=== PATIENT | female | born 1930 | race Caucasian/White ===

== ENCOUNTER 2018-07-03 06:38 | Inpatient (IN) | payer OTHER ==
[2018-07-03] MEDS: SOD CHLORIDE 0.9% 1,000 ML IV (06:43)
[2018-07-03] MEDS: IPRATROPIUM (NEB) 0.5 MG/2.5 ML AMP INH (06:55)
[2018-07-03] MEDS: ALBUTEROL 0.5% (NEB) 2.5 MG/0.5 ML AMP INH (06:55)
[2018-07-03 06:58] LABS: ADD MAN DIFF? NO
[2018-07-03 06:59] LABS: WHITE BLOOD COUNT 10.8 10^3/ul (4.8-10.8)
[2018-07-03 06:59] LABS: BASOPHIL # 0.1 10^3/ul (0.0-0.1); BASOPHILS % 0.5 % (0.0-2.0); EOSINOPHILS # 0.1 10^3/ul (0.0-0.5); EOSINOPHILS % 0.6 % (0.0-7.0); HEMOGLOBIN 7.9 g/dl (12.0-16.0); LYMPHOCYTES # 0.9 10^3/ul (0.8-2.9); LYMPHOCYTES % 8.4 % (15.0-51.0); MEAN CORPUSCULAR HEMOGLOBIN 31.2 pg (29.0-33.0); MEAN CORPUSCULAR HGB CONC 30.4 g/dl (32.0-37.0); MEAN CORPUSCULAR VOLUME 102.8 fl (82.0-101.0); MEAN PLATELET VOLUME 10.3 fl (7.4-10.4); MONOCYTE # 0.7 10^3/ul (0.3-0.9); MONOCYTES % 6.9 % (0.0-11.0); NEUTROPHIL # 8.9 10^3/ul (1.6-7.5); NEUTROPHILS % 82.7 % (39.0-77.0); PLATELET COUNT 268 10^3/UL (140-415); RED BLOOD COUNT 2.53 10^6/ul (4.20-5.40); RED CELL DISTRIBUTION WIDTH 13.6 % (11.5-14.5)
[2018-07-03 07:18] LABS: ALANINE AMINOTRANSFERASE 29 IU/L (13-69); ALBUMIN 3.2 g/dl (3.3-4.9); ALBUMIN/GLOBULIN RATIO 0.94; ALKALINE PHOSPHATASE 151 IU/L (42-121); ANION GAP 11 (8-16); ASPARTATE AMINO TRANSFERASE 29 IU/L (15-46); BILIRUBIN,INDIRECT 0.1 mg/dl (0-1.1); BILIRUBIN,TOTAL 0.1 mg/dl (0.2-1.3); BLOOD UREA NITROGEN 71 mg/dl (7-20); CALCIUM 7.8 mg/dl (8.4-10.2); CARBON DIOXIDE 31 mmol/L (21-31); CHLORIDE 107 mmol/L (97-110); CREATININE 2.46 mg/dl (0.44-1.00); GLUCOSE 360 mg/dl (70-220); LIPASE 201 U/L (23-300); POTASSIUM 5.4 mmol/L (3.5-5.1); SODIUM 144 mmol/L (135-144); TOTAL PROTEIN 6.6 g/dl (6.1-8.1)
[2018-07-03 07:28] LABS: ADD UMIC YES; UR AMORPHOUS CRYSTAL FEW /HPF (NONE SEEN); UR ASCORBIC ACID 20 mg/dL (NEGATIVE); UR BILIRUBIN (Dip) NEGATIVE (NEGATIVE); UR BLOOD (Dip) NEGATIVE (NEGATIVE); UR CLARITY CLEAR (CLEAR); UR COLOR YELLOW (YELLOW); UR GLUCOSE (Dip) 3+ mg/dL (NEGATIVE); UR HYALINE CAST FEW /HPF (NONE SEEN); UR KETONES (Dip) TRACE mg/dL (NEGATIVE); UR LEUKOCYTE ESTERASE (Dip) NEGATIVE Leu/ul (NEGATIVE); UR NITRITE (Dip) NEGATIVE (NEGATIVE); UR RBC 1 /HPF (0-5); UR SPECIFIC GRAVITY (Dip) 1.011 (1.003-1.030); UR SQUAMOUS EPITHELIAL CELL FEW /HPF (FEW); UR TOTAL PROTEIN (Dip) 3+ mg/dl (NEGATIVE); UR UROBILINOGEN (Dip) NEGATIVE (NEGATIVE); UR WBC 2 /HPF (0-5)
[2018-07-03 07:36] LABS: AADO2 Arterial 167.5 mmHg (7.0-24.0); Allen Test ACCEPTAB; Arterial Base Excess 3.6 mmol/L (-3.0-3); Arterial Blood Gas Oxygen Sat 97.5 mmHG (95.0-100.0); Arterial COHb 0.4 % (0.0-3.0); Arterial Fraction of Oxyhgb 96.8 % (93.0-99.0); Arterial HCO3 30.6 mmol/L (22.0-26.0); Arterial MetHb 0.3 % (0.0-1.5); Arterial Total Hemglobin 8.7 g/dl (12.0-18.0); Arterial pCO2 62.1 mmhg (35-45); MODE MASK - SIMPLE; Site Right Radial
[2018-07-03] MEDS ORDERED: FUROSEMIDE 20 MG INJ (07:41)
[2018-07-03] MEDS: ACETAMINOPHEN 325 MG TAB PO (07:56)
[2018-07-03] MEDS: FUROSEMIDE 40 MG INJ IV (07:59)
[2018-07-03] MEDS: METHYLPREDNISOLONE 125 MG INJ IV (09:05)
[2018-07-03 11:01] LABS: LACTIC ACID 0.7 mmol/L (0.5-2.0)
[2018-07-03] MEDS ORDERED: POLYETHYLENE GLYCOL 17 GM PACKET PO (12:30)
[2018-07-03] MEDS ORDERED: ALBUTEROL 0.083% (NEB) 2.5 MG/3 ML AMP NEB (12:30)
[2018-07-03] MEDS: METHYLPREDNISOLONE 40 MG INJ IV (13:05)
[2018-07-03] MEDS: ALBUTEROL/IPRATROPIUM (NEB) 3 ML AMP HHN ×3 (13:34→21:07)
[2018-07-03] MEDS: INSULIN ASPART [NOVOLOG] 3 ML PEN SC ×3 (17:28→23:20)
[2018-07-03] MEDS ORDERED: GLUCAGON 1 MG INJ IM (17:30)
[2018-07-03] MEDS ORDERED: GLUCOSE GEL 15 GRAM TUBE PO ×2 (17:30)
[2018-07-03] MEDS ORDERED: GLUCOSE GEL 15 GRAM TUBE BUCCAL (17:30)
[2018-07-03] MEDS ORDERED: DEXTROSE 50% 50 ML SYRINGE IV (17:30)
[2018-07-03 18:36] LABS: ANION GAP 16 (8-16); BLOOD UREA NITROGEN 75 mg/dl (7-20); CALCIUM 8.3 mg/dl (8.4-10.2); CARBON DIOXIDE 30 mmol/L (21-31); CHLORIDE 104 mmol/L (97-110); CREATININE 2.47 mg/dl (0.44-1.00); POTASSIUM 5.3 mmol/L (3.5-5.1); SODIUM 145 mmol/L (135-144)
[2018-07-03 19:25] LABS: GLUCOSE 441 mg/dl (70-220)
[2018-07-03] MEDS ORDERED: INSULIN ASP PROT/ASPART (70/30) PEN SC (19:30)
[2018-07-03 19:35] LABS: CREATINE KINASE 42 IU/L (23-200)
[2018-07-03 19:45] LABS: CK INDEX 3.7; CK-MB 1.57 ng/ml (0.0-2.4); TROPONIN-I 0.023 ng/ml (0.000-0.120)
[2018-07-03 20:44] LABS: AADO2 Arterial 247.5 mmHg (7.0-24.0); Allen Test ACCEPTAB; Arterial Base Excess 0.9 mmol/L (-3.0-3); Arterial Blood Gas Oxygen Sat 92.1 mmHG (95.0-100.0); Arterial COHb 0.3 % (0.0-3.0); Arterial Fraction of Oxyhgb 91.5 % (93.0-99.0); Arterial HCO3 27.4 mmol/L (22.0-26.0); Arterial MetHb 0.3 % (0.0-1.5); Arterial Total Hemglobin 9.8 g/dl (12.0-18.0); Arterial pCO2 53.2 mmhg (35-45); MODE MASK - SIMPLE; Site Right Radial
[2018-07-03] MEDS: MIRTAZAPINE 15 MG TAB PO (23:09)
[2018-07-03] MEDS: DOCUSATE SODIUM 100 MG CAP PO (23:09)
[2018-07-03] MEDS: CEFEPIME 1GM/50 ML (PMX) 50 ML IVPB (23:09)
[2018-07-03] MEDS: ATORVASTATIN 40 MG TAB PO (23:09)
[2018-07-03] MEDS: INSULIN REGULAR, HUMAN 100 UNIT/1 ML 3ML VIAL IVP (23:17)
[2018-07-03] MEDS: INSULIN GLARGINE [LANTus] (100 UNITS/ML) SYG SC (23:17)
[2018-07-03 23:18] LABS: AADO2 Arterial 258.3 mmHg (7.0-24.0); Allen Test ACCEPTAB; Arterial Base Excess 5.1 mmol/L (-3.0-3); Arterial COHb 0.3 % (0.0-3.0); Arterial Fraction of Oxyhgb 97.4 % (93.0-99.0); Arterial HCO3 31.8 mmol/L (22.0-26.0); Arterial MetHb 0.3 % (0.0-1.5); Arterial Total Hemglobin 7.8 g/dl (12.0-18.0); Arterial pCO2 61.9 mmhg (35-45); Blood Gas IEPAP 18/5; Blood Gas PS 13; MODE MASK - BIPAP; Site Right Radial
[2018-07-04 01:12] LABS: CREATINE KINASE 37 IU/L (23-200)
[2018-07-04] MEDS: ALBUTEROL/IPRATROPIUM (NEB) 3 ML AMP HHN ×6 (01:13→20:35)
[2018-07-04 01:23] LABS: CK-MB 1.11 ng/ml (0.0-2.4); TROPONIN-I 0.028 ng/ml (0.000-0.120)
[2018-07-04] MEDS: ACCU-CHEK XX (02:01)
[2018-07-04] MEDS: hydrALAzine 20 MG INJ IV ×3 (04:55→21:01)
[2018-07-04] MEDS: PANTOPRAZOLE (EC) 40 MG TAB PO (05:32)
[2018-07-04] MEDS: LEVOTHYROXINE 75 MCG TAB PO (05:32)
[2018-07-04 05:43] LABS: ADD MAN DIFF? NO
[2018-07-04 05:44] LABS: BASOPHILS % 0.1 % (0.0-2.0); HEMATOCRIT 23.4 % (37.0-47.0); HEMOGLOBIN 7.1 g/dl (12.0-16.0); LYMPHOCYTES # 0.8 10^3/ul (0.8-2.9); LYMPHOCYTES % 8.4 % (15.0-51.0); MEAN CORPUSCULAR HEMOGLOBIN 30.9 pg (29.0-33.0); MEAN CORPUSCULAR HGB CONC 30.3 g/dl (32.0-37.0); MEAN CORPUSCULAR VOLUME 101.7 fl (82.0-101.0); MEAN PLATELET VOLUME 10.4 fl (7.4-10.4); MONOCYTE # 0.7 10^3/ul (0.3-0.9); NEUTROPHIL # 7.7 10^3/ul (1.6-7.5); NEUTROPHILS % 82.7 % (39.0-77.0); PLATELET COUNT 222 10^3/UL (140-415); RED CELL DISTRIBUTION WIDTH 13.8 % (11.5-14.5)
[2018-07-04 05:44] LABS: WHITE BLOOD COUNT 9.3 10^3/ul (4.8-10.8)
[2018-07-04 06:15] LABS: IRON 54 ug/dl (35-150)
[2018-07-04 06:18] LABS: ANION GAP 9 (8-16); BLOOD UREA NITROGEN 76 mg/dl (7-20); CALCIUM 7.7 mg/dl (8.4-10.2); CARBON DIOXIDE 33 mmol/L (21-31); CHLORIDE 108 mmol/L (97-110); CREATININE 2.39 mg/dl (0.44-1.00); GLUCOSE 210 mg/dl (70-220); POTASSIUM 5.2 mmol/L (3.5-5.1); SODIUM 145 mmol/L (135-144)
[2018-07-04 06:24] LABS: % IRON SATURATION 23 % SAT (22-52); TOTAL IRON BINDING CAPACITY 232 ug/dl (241-421)
[2018-07-04 06:57] LABS: MAGNESIUM 2.1 mg/dl (1.7-2.5)
[2018-07-04 06:57] LABS: PHOSPHORUS 5.2 mg/dl (2.5-4.9)
[2018-07-04 07:47] LABS: AADO2 Arterial 179.2 mmHg (7.0-24.0); Allen Test ACCEPTAB; Arterial Blood Gas Oxygen Sat 96.9 mmHG (95.0-100.0); Arterial COHb 0 % (0.0-3.0); Arterial Fraction of Oxyhgb 96.6 % (93.0-99.0); Arterial HCO3 31.1 mmol/L (22.0-26.0); Arterial MetHb 0.3 % (0.0-1.5); Arterial pCO2 55.4 mmhg (35-45); Blood Gas IEPAP 20/8; Blood Gas PS 12; MODE MASK - BIPAP; Site Left Radial
[2018-07-04] MEDS: INSULIN ASPART [NOVOLOG] 3 ML PEN SC ×7 (08:03→21:18)
[2018-07-04] MEDS: NIFEdipine (XL) 90 MG TAB PO (09:00)
[2018-07-04] MEDS: DOCUSATE SODIUM 100 MG CAP PO (09:00)
[2018-07-04] MEDS: ASPIRIN 81 MG TAB PO (09:00)
[2018-07-04] MEDS ORDERED: predniSONE 10 MG TAB PO (09:00)
[2018-07-04] MEDS: METHYLPREDNISOLONE 40 MG INJ IV (09:05)
[2018-07-04 16:18] LABS: IMMEDIATE SPIN CROSSMATCH 1 1
[2018-07-04] MEDS: FUROSEMIDE 20 MG INJ IV (18:56)
[2018-07-04] MEDS: CLONIDINE 0.2 MG/24 HR PATCH TRANSDERM (18:57)
[2018-07-04] MEDS: FAMOTIDINE 20 MG TAB PO (21:00)
[2018-07-04] MEDS: MIRTAZAPINE 15 MG TAB PO (21:01)
[2018-07-04] MEDS: CEFEPIME 1GM/50 ML (PMX) 50 ML IVPB (21:02)
[2018-07-04] MEDS: ATORVASTATIN 40 MG TAB PO (21:02)
[2018-07-04] MEDS: INSULIN GLARGINE [LANTus] (100 UNITS/ML) SYG SC (21:19)
[2018-07-04] MEDS: LACTOBACILLUS RHAMNOSUS CAP PO (21:20)
[2018-07-05] MEDS: ALBUTEROL/IPRATROPIUM (NEB) 3 ML AMP HHN ×6 (01:17→20:46)
[2018-07-05] MEDS: ACCU-CHEK XX (02:10)
[2018-07-05] MEDS: LEVOTHYROXINE 75 MCG TAB PO (05:43)
[2018-07-05 06:11] LABS: ADD MAN DIFF? NO
[2018-07-05 06:15] LABS: BASOPHILS % 0.2 % (0.0-2.0); EOSINOPHILS % 0.1 % (0.0-7.0); HEMATOCRIT 27.5 % (37.0-47.0); HEMOGLOBIN 8.5 g/dl (12.0-16.0); LYMPHOCYTES # 1.6 10^3/ul (0.8-2.9); LYMPHOCYTES % 11.8 % (15.0-51.0); MEAN CORPUSCULAR HEMOGLOBIN 30.7 pg (29.0-33.0); MEAN CORPUSCULAR HGB CONC 30.9 g/dl (32.0-37.0); MEAN CORPUSCULAR VOLUME 99.3 fl (82.0-101.0); MEAN PLATELET VOLUME 10.6 fl (7.4-10.4); MONOCYTE # 1.4 10^3/ul (0.3-0.9); MONOCYTES % 10.5 % (0.0-11.0); NEUTROPHIL # 10.1 10^3/ul (1.6-7.5); NEUTROPHILS % 76.7 % (39.0-77.0); PLATELET COUNT 211 10^3/UL (140-415); RED BLOOD COUNT 2.77 10^6/ul (4.20-5.40); RED CELL DISTRIBUTION WIDTH 16.6 % (11.5-14.5)
[2018-07-05 06:15] LABS: WHITE BLOOD COUNT 13.2 10^3/ul (4.8-10.8)
[2018-07-05 06:24] LABS: INR 1.01; PROTIME 13.4 Sec (11.9-14.9)
[2018-07-05 06:46] LABS: ANION GAP 8 (8-16); BLOOD UREA NITROGEN 80 mg/dl (7-20); CALCIUM 7.7 mg/dl (8.4-10.2); CARBON DIOXIDE 33 mmol/L (21-31); CHLORIDE 108 mmol/L (97-110); CREATININE 2.31 mg/dl (0.44-1.00); GLUCOSE 161 mg/dl (70-220); POTASSIUM 4.8 mmol/L (3.5-5.1); SODIUM 144 mmol/L (135-144)
[2018-07-05] MEDS: INSULIN ASPART [NOVOLOG] 3 ML PEN SC ×7 (07:48→20:55)
[2018-07-05] MEDS: hydrALAzine 20 MG INJ IV ×4 (08:29→22:09)
[2018-07-05] MEDS: DOCUSATE SODIUM 100 MG CAP PO (08:31)
[2018-07-05] MEDS: THIAMINE 100 MG TAB PO (08:32)
[2018-07-05] MEDS: ASPIRIN 81 MG TAB PO (08:32)
[2018-07-05] MEDS: LACTOBACILLUS RHAMNOSUS CAP PO ×2 (08:32→20:54)
[2018-07-05] MEDS: NIFEdipine (XL) 90 MG TAB PO (08:32)
[2018-07-05] MEDS: ENOXAPARIN 30 MG/0.3 ML SYG SC (08:48)
[2018-07-05] MEDS: FUROSEMIDE 40 MG INJ IV (09:45)
[2018-07-05] MEDS: METHYLPREDNISOLONE 40 MG INJ IV ×3 (11:56→23:46)
[2018-07-05] MEDS: CEFEPIME 1GM/50 ML (PMX) 50 ML IVPB (20:53)
[2018-07-05] MEDS: MIRTAZAPINE 15 MG TAB PO (20:54)
[2018-07-05] MEDS: ATORVASTATIN 40 MG TAB PO (20:54)
[2018-07-05] MEDS: FAMOTIDINE 20 MG TAB PO (20:54)
[2018-07-05] MEDS: INSULIN GLARGINE [LANTus] (100 UNITS/ML) SYG SC (20:59)
[2018-07-06] MEDS: ALBUTEROL/IPRATROPIUM (NEB) 3 ML AMP HHN ×6 (00:21→20:36)
[2018-07-06] MEDS: ACCU-CHEK XX (02:00)
[2018-07-06 05:39] LABS: ADD MAN DIFF? NO
[2018-07-06 05:40] LABS: WHITE BLOOD COUNT 9.4 10^3/ul (4.8-10.8)
[2018-07-06 05:40] LABS: ABNORMAL IP MESSAGE 1; BASOPHILS % 0.1 % (0.0-2.0); HEMATOCRIT 29.6 % (37.0-47.0); HEMOGLOBIN 9.2 g/dl (12.0-16.0); LYMPHOCYTES # 0.6 10^3/ul (0.8-2.9); MEAN CORPUSCULAR HEMOGLOBIN 30.5 pg (29.0-33.0); MEAN CORPUSCULAR HGB CONC 31.1 g/dl (32.0-37.0); MEAN PLATELET VOLUME 9.7 fl (7.4-10.4); MONOCYTE # 0.1 10^3/ul (0.3-0.9); MONOCYTES % 1.2 % (0.0-11.0); NEUTROPHIL # 8.6 10^3/ul (1.6-7.5); NEUTROPHILS % 91.4 % (39.0-77.0); PLATELET COUNT 209 10^3/UL (140-415); POSITIVE DIFF @See below; RED BLOOD COUNT 3.02 10^6/ul (4.20-5.40); RED CELL DISTRIBUTION WIDTH 15.8 % (11.5-14.5)
[2018-07-06 06:02] LABS: MAGNESIUM 1.9 mg/dl (1.7-2.5)
[2018-07-06] MEDS: METHYLPREDNISOLONE 40 MG INJ IV ×3 (06:02→17:17)
[2018-07-06] MEDS: LEVOTHYROXINE 75 MCG TAB PO (06:02)
[2018-07-06] MEDS: hydrALAzine 20 MG INJ IV ×2 (06:03→08:21)
[2018-07-06 06:07] LABS: ANION GAP 8 (8-16); BLOOD UREA NITROGEN 69 mg/dl (7-20); CARBON DIOXIDE 34 mmol/L (21-31); CHLORIDE 109 mmol/L (97-110); CREATININE 2.15 mg/dl (0.44-1.00); GLUCOSE 203 mg/dl (70-220); POTASSIUM 4.8 mmol/L (3.5-5.1); SODIUM 146 mmol/L (135-144)
[2018-07-06] MEDS: INSULIN ASPART [NOVOLOG] 3 ML PEN SC ×7 (08:03→21:13)
[2018-07-06 08:08] LABS: HEMOGLOBIN A1C 8.1 % (0-5.9)
[2018-07-06] MEDS: NIFEdipine (XL) 90 MG TAB PO (08:20)
[2018-07-06] MEDS: DOCUSATE SODIUM 100 MG CAP PO (08:21)
[2018-07-06] MEDS: THIAMINE 100 MG TAB PO (08:21)
[2018-07-06] MEDS: ASPIRIN 81 MG TAB PO (08:21)
[2018-07-06] MEDS: LACTOBACILLUS RHAMNOSUS CAP PO ×2 (08:22→21:06)
[2018-07-06] MEDS: ENOXAPARIN 30 MG/0.3 ML SYG SC (08:34)
[2018-07-06 08:58] LABS: AADO2 Arterial 131.7 mmHg (7.0-24.0); Allen Test ACCEPTAB; Arterial Base Excess 4.9 mmol/L (-3.0-3); Arterial Blood Gas Oxygen Sat 76.2 mmHG (95.0-100.0); Arterial COHb 1.2 % (0.0-3.0); Arterial Fraction of Oxyhgb 75.1 % (93.0-99.0); Arterial HCO3 30.8 mmol/L (22.0-26.0); Arterial MetHb 0.3 % (0.0-1.5); Arterial Total Hemglobin 10.2 g/dl (12.0-18.0); Arterial pCO2 52.8 mmhg (35-45); MODE NASAL CANNULA; Site Right Radial
[2018-07-06 10:33] LABS: AADO2 Arterial 90.7 mmHg (7.0-24.0); Allen Test ACCEPTAB; Arterial Base Excess 3.7 mmol/L (-3.0-3); Arterial Blood Gas Oxygen Sat 95.9 mmHG (95.0-100.0); Arterial COHb 0.6 % (0.0-3.0); Arterial HCO3 29.3 mmol/L (22.0-26.0); Arterial MetHb 0.3 % (0.0-1.5); Arterial Total Hemglobin 9.6 g/dl (12.0-18.0); Arterial pCO2 49.6 mmhg (35-45); MODE NASAL CANNULA; Site Right Radial
[2018-07-06] MEDS: IBUPROFEN 600 MG TAB PO (11:39)
[2018-07-06] MEDS: MIRTAZAPINE 15 MG TAB PO (21:06)
[2018-07-06] MEDS: FAMOTIDINE 20 MG TAB PO (21:06)
[2018-07-06] MEDS: CEFEPIME 1GM/50 ML (PMX) 50 ML IVPB (21:06)
[2018-07-06] MEDS: ATORVASTATIN 40 MG TAB PO (21:06)
[2018-07-06] MEDS: INSULIN GLARGINE [LANTus] (100 UNITS/ML) SYG SC (21:09)
[2018-07-07] MEDS: METHYLPREDNISOLONE 40 MG INJ IV ×3 (00:07→20:52)
[2018-07-07] MEDS: ALBUTEROL/IPRATROPIUM (NEB) 3 ML AMP HHN ×6 (00:46→20:37)
[2018-07-07] MEDS: ACCU-CHEK XX (02:00)
[2018-07-07 05:45] LABS: ADD MAN DIFF? NO
[2018-07-07 05:52] LABS: WHITE BLOOD COUNT 12.2 10^3/ul (4.8-10.8)
[2018-07-07 05:52] LABS: ABNORMAL IP MESSAGE 1; BASOPHILS % 0.1 % (0.0-2.0); HEMATOCRIT 27.1 % (37.0-47.0); HEMOGLOBIN 8.4 g/dl (12.0-16.0); LYMPHOCYTES # 0.6 10^3/ul (0.8-2.9); LYMPHOCYTES % 4.8 % (15.0-51.0); MEAN CORPUSCULAR HEMOGLOBIN 30.4 pg (29.0-33.0); MEAN CORPUSCULAR VOLUME 98.2 fl (82.0-101.0); MEAN PLATELET VOLUME 10.5 fl (7.4-10.4); MONOCYTE # 0.4 10^3/ul (0.3-0.9); MONOCYTES % 2.9 % (0.0-11.0); NEUTROPHIL # 11.2 10^3/ul (1.6-7.5); NEUTROPHILS % 91.4 % (39.0-77.0); PLATELET COUNT 195 10^3/UL (140-415); RED BLOOD COUNT 2.76 10^6/ul (4.20-5.40); RED CELL DISTRIBUTION WIDTH 15.4 % (11.5-14.5)
[2018-07-07 05:55] LABS: POSITIVE DIFF @See below
[2018-07-07] MEDS: LEVOTHYROXINE 75 MCG TAB PO (05:59)
[2018-07-07 06:10] LABS: INR 1.07; PT RATIO 1.1
[2018-07-07 06:38] LABS: ALANINE AMINOTRANSFERASE 23 IU/L (13-69); ALBUMIN 2.5 g/dl (3.3-4.9); ALBUMIN/GLOBULIN RATIO 0.78; ALKALINE PHOSPHATASE 87 IU/L (42-121); ANION GAP 12 (8-16); ASPARTATE AMINO TRANSFERASE 23 IU/L (15-46); BILIRUBIN,INDIRECT 0.1 mg/dl (0-1.1); BILIRUBIN,TOTAL 0.1 mg/dl (0.2-1.3); BLOOD UREA NITROGEN 75 mg/dl (7-20); CALCIUM 7.6 mg/dl (8.4-10.2); CARBON DIOXIDE 31 mmol/L (21-31); CHLORIDE 104 mmol/L (97-110); CREATININE 2.28 mg/dl (0.44-1.00); GLUCOSE 229 mg/dl (70-220); MAGNESIUM 2.1 mg/dl (1.7-2.5); PHOSPHORUS 4.6 mg/dl (2.5-4.9); POTASSIUM 4.9 mmol/L (3.5-5.1); SODIUM 142 mmol/L (135-144); TOTAL PROTEIN 5.7 g/dl (6.1-8.1)
[2018-07-07] MEDS: INSULIN ASPART [NOVOLOG] 3 ML PEN SC ×7 (08:12→20:52)
[2018-07-07] MEDS: ASPIRIN 81 MG TAB PO (09:41)
[2018-07-07] MEDS: DOCUSATE SODIUM 100 MG CAP PO (09:42)
[2018-07-07] MEDS: THIAMINE 100 MG TAB PO (09:42)
[2018-07-07] MEDS: NIFEdipine (XL) 90 MG TAB PO (09:43)
[2018-07-07] MEDS: LACTOBACILLUS RHAMNOSUS CAP PO ×2 (09:45→20:52)
[2018-07-07] MEDS: ENOXAPARIN 30 MG/0.3 ML SYG SC (09:46)
[2018-07-07] MEDS: VORICONAZOLE 200 MG TAB PO ×2 (11:53→20:50)
[2018-07-07] MEDS ORDERED: FLUCONAZOLE 200 MG TAB PO (12:00)
[2018-07-07 18:57] LABS: SODIUM,URINE RANDOM 27 mmol/L (30-90)
[2018-07-07 19:02] LABS: CREATININE,URINE RANDOM 59.64 mg/dl (20-320)
[2018-07-07 19:07] LABS: PROTEIN/CREAT RATIO 9.13 RATIO
[2018-07-07] MEDS: CEFEPIME 1GM/50 ML (PMX) 50 ML IVPB (20:50)
[2018-07-07] MEDS: MIRTAZAPINE 15 MG TAB PO (20:50)
[2018-07-07] MEDS: FAMOTIDINE 20 MG TAB PO (20:51)
[2018-07-07] MEDS: ATORVASTATIN 40 MG TAB PO (20:51)
[2018-07-07] MEDS: INSULIN GLARGINE [LANTus] (100 UNITS/ML) SYG SC (21:07)
[2018-07-08] MEDS: ALBUTEROL/IPRATROPIUM (NEB) 3 ML AMP HHN ×6 (01:07→20:39)
[2018-07-08] MEDS: ACCU-CHEK XX (01:59)
[2018-07-08] MEDS: LEVOTHYROXINE 75 MCG TAB PO (05:45)
[2018-07-08 06:02] LABS: URIC ACID 9.7 mg/dl (3.1-7.9)
[2018-07-08 06:02] LABS: CREATINE KINASE 27 IU/L (23-200)
[2018-07-08] MEDS: INSULIN ASPART [NOVOLOG] 3 ML PEN SC ×7 (08:00→20:43)
[2018-07-08] MEDS: DOCUSATE SODIUM 100 MG CAP PO (08:15)
[2018-07-08] MEDS: METHYLPREDNISOLONE 40 MG INJ IV ×2 (08:15→20:42)
[2018-07-08] MEDS: LACTOBACILLUS RHAMNOSUS CAP PO ×2 (08:15→20:41)
[2018-07-08] MEDS: THIAMINE 100 MG TAB PO (08:15)
[2018-07-08] MEDS: ASPIRIN 81 MG TAB PO (08:15)
[2018-07-08] MEDS: VORICONAZOLE 200 MG TAB PO ×2 (08:15→20:41)
[2018-07-08] MEDS: NIFEdipine (XL) 90 MG TAB PO (08:16)
[2018-07-08] MEDS: ENOXAPARIN 30 MG/0.3 ML SYG SC (08:17)
[2018-07-08 09:02] LABS: ADD MAN DIFF? NO
[2018-07-08 09:08] LABS: ABNORMAL IP MESSAGE 1; BASOPHILS % 0.1 % (0.0-2.0); HEMATOCRIT 28.9 % (37.0-47.0); HEMOGLOBIN 8.9 g/dl (12.0-16.0); LYMPHOCYTES # 0.5 10^3/ul (0.8-2.9); MEAN CORPUSCULAR HEMOGLOBIN 31.2 pg (29.0-33.0); MEAN CORPUSCULAR HGB CONC 30.8 g/dl (32.0-37.0); MEAN CORPUSCULAR VOLUME 101.4 fl (82.0-101.0); MONOCYTE # 0.2 10^3/ul (0.3-0.9); MONOCYTES % 1.6 % (0.0-11.0); NEUTROPHIL # 11.3 10^3/ul (1.6-7.5); NEUTROPHILS % 93.8 % (39.0-77.0); PLATELET COUNT 204 10^3/UL (140-415); RED BLOOD COUNT 2.85 10^6/ul (4.20-5.40); RED CELL DISTRIBUTION WIDTH 14.9 % (11.5-14.5)
[2018-07-08 09:08] LABS: WHITE BLOOD COUNT 12.1 10^3/ul (4.8-10.8)
[2018-07-08 09:11] LABS: ALANINE AMINOTRANSFERASE 24 IU/L (13-69); ALBUMIN 2.5 g/dl (3.3-4.9); ALBUMIN/GLOBULIN RATIO 0.75; ALKALINE PHOSPHATASE 77 IU/L (42-121); ANION GAP 11 (8-16); ASPARTATE AMINO TRANSFERASE 38 IU/L (15-46); BILIRUBIN,INDIRECT 0.1 mg/dl (0-1.1); BILIRUBIN,TOTAL 0.1 mg/dl (0.2-1.3); BLOOD UREA NITROGEN 86 mg/dl (7-20); CALCIUM 7.6 mg/dl (8.4-10.2); CARBON DIOXIDE 31 mmol/L (21-31); CHLORIDE 107 mmol/L (97-110); CREATININE 2.48 mg/dl (0.44-1.00); GLUCOSE 78 mg/dl (70-220); POTASSIUM 5.2 mmol/L (3.5-5.1); SODIUM 144 mmol/L (135-144); TOTAL PROTEIN 5.8 g/dl (6.1-8.1)
[2018-07-08 09:14] LABS: POSITIVE DIFF @See below
[2018-07-08] MEDS: NA POLYST SULFON 15 GM/60 ML BTL PO (17:23)
[2018-07-08] MEDS: MIRTAZAPINE 15 MG TAB PO (20:41)
[2018-07-08] MEDS: ATORVASTATIN 40 MG TAB PO (20:41)
[2018-07-08] MEDS: CEFEPIME 1GM/50 ML (PMX) 50 ML IVPB (20:42)
[2018-07-08] MEDS: FAMOTIDINE 20 MG TAB PO (20:43)
[2018-07-08] MEDS: INSULIN GLARGINE [LANTus] (100 UNITS/ML) SYG SC (21:00)
[2018-07-09] MEDS: INSULIN GLARGINE [LANTus] (100 UNITS/ML) SYG SC ×3 (00:04→21:15)
[2018-07-09] MEDS: ALBUTEROL/IPRATROPIUM (NEB) 3 ML AMP HHN ×6 (01:00→20:26)
[2018-07-09] MEDS: ACCU-CHEK XX (02:00)
[2018-07-09] MEDS: LEVOTHYROXINE 75 MCG TAB PO (05:32)
[2018-07-09 05:36] LABS: ADD MAN DIFF? NO
[2018-07-09 05:41] LABS: WHITE BLOOD COUNT 11.1 10^3/ul (4.8-10.8)
[2018-07-09 05:41] LABS: ABNORMAL IP MESSAGE 1; BASOPHILS % 0.1 % (0.0-2.0); HEMATOCRIT 28.2 % (37.0-47.0); HEMOGLOBIN 8.7 g/dl (12.0-16.0); LYMPHOCYTES # 0.4 10^3/ul (0.8-2.9); LYMPHOCYTES % 3.8 % (15.0-51.0); MEAN CORPUSCULAR HEMOGLOBIN 30.5 pg (29.0-33.0); MEAN CORPUSCULAR HGB CONC 30.9 g/dl (32.0-37.0); MEAN CORPUSCULAR VOLUME 98.9 fl (82.0-101.0); MEAN PLATELET VOLUME 10.5 fl (7.4-10.4); MONOCYTE # 0.4 10^3/ul (0.3-0.9); MONOCYTES % 3.9 % (0.0-11.0); NEUTROPHIL # 10.2 10^3/ul (1.6-7.5); NEUTROPHILS % 91.6 % (39.0-77.0); PLATELET COUNT 209 10^3/UL (140-415); RED BLOOD COUNT 2.85 10^6/ul (4.20-5.40); RED CELL DISTRIBUTION WIDTH 14.8 % (11.5-14.5)
[2018-07-09 06:05] LABS: ANION GAP 15 (8-16); BLOOD UREA NITROGEN 100 mg/dl (7-20); CALCIUM 7.3 mg/dl (8.4-10.2); CARBON DIOXIDE 30 mmol/L (21-31); CHLORIDE 102 mmol/L (97-110); CREATININE 3.08 mg/dl (0.44-1.00); GLUCOSE 130 mg/dl (70-220); MAGNESIUM 2.2 mg/dl (1.7-2.5); PHOSPHORUS 6.1 mg/dl (2.5-4.9); POTASSIUM 5.5 mmol/L (3.5-5.1); SODIUM 141 mmol/L (135-144)
[2018-07-09 06:31] LABS: POSITIVE DIFF @See below
[2018-07-09] MEDS: INSULIN ASPART [NOVOLOG] 3 ML PEN SC ×7 (08:00→21:00)
[2018-07-09] MEDS: ASPIRIN 81 MG TAB PO (08:06)
[2018-07-09] MEDS: METHYLPREDNISOLONE 40 MG INJ IV (08:31)
[2018-07-09] MEDS: LACTOBACILLUS RHAMNOSUS CAP PO ×2 (08:32→20:56)
[2018-07-09] MEDS: VORICONAZOLE 200 MG TAB PO ×2 (08:32→20:56)
[2018-07-09] MEDS: NIFEdipine (XL) 90 MG TAB PO (08:32)
[2018-07-09] MEDS: THIAMINE 100 MG TAB PO (08:33)
[2018-07-09] MEDS: DOCUSATE SODIUM 100 MG CAP PO (08:34)
[2018-07-09] MEDS: LIDOCAINE 1% (MPF) 5 ML VIAL (09:58)
[2018-07-09] MEDS: NA POLYST SULFON 15 GM/60 ML BTL PO (11:50)
[2018-07-09] MEDS: CALCIUM ACETATE 667 MG CAP PO ×2 (11:51→17:22)
[2018-07-09] MEDS: ALBUMIN HUMAN 25% 50 ML IV (11:51)
[2018-07-09 11:59] LABS: FLD MN% 95.2 %; FLD PMN% 4.8 %; FLD RBC 0 /uL; FLD WBC 21 /cmm
[2018-07-09 12:36] LABS: FLD CLARITY HAZY; FLD COLOR YELLOW
[2018-07-09 12:54] LABS: FLUID LD 215 U/L; FLUID TOTAL PROTEIN < 2.0 g/dl
[2018-07-09 12:55] LABS: FLUID GLUCOSE 116 mg/dl; FLUID TYPE THORACENTESIS FLUID
[2018-07-09 12:59] LABS: FLUID TYPE THORACENTESIS FLUID
[2018-07-09] MEDS ORDERED: DEXTROSE 5%-0.45% NACL 1,000 ML IV (16:30)
[2018-07-09 19:17] LABS: ANION GAP 17 (8-16); BLOOD UREA NITROGEN 106 mg/dl (7-20); CALCIUM 7.5 mg/dl (8.4-10.2); CARBON DIOXIDE 27 mmol/L (21-31); CHLORIDE 101 mmol/L (97-110); CREATININE 3.43 mg/dl (0.44-1.00); GLUCOSE 81 mg/dl (70-220); POTASSIUM 4.5 mmol/L (3.5-5.1); SODIUM 140 mmol/L (135-144)
[2018-07-09] MEDS: CEFEPIME 1GM/50 ML (PMX) 50 ML IVPB (20:48)
[2018-07-09] MEDS: FAMOTIDINE 20 MG TAB PO (20:56)
[2018-07-09] MEDS: ATORVASTATIN 40 MG TAB PO (20:56)
[2018-07-09] MEDS: MIRTAZAPINE 15 MG TAB PO (20:56)
[2018-07-10] MEDS: ALBUTEROL/IPRATROPIUM (NEB) 3 ML AMP HHN ×5 (00:37→16:42)
[2018-07-10] MEDS: ACCU-CHEK XX (01:08)
[2018-07-10] MEDS: LEVOTHYROXINE 75 MCG TAB PO (05:18)
[2018-07-10 05:40] LABS: ADD MAN DIFF? NO
[2018-07-10 05:49] LABS: BASOPHILS % 0.1 % (0.0-2.0); HEMATOCRIT 28.8 % (37.0-47.0); HEMOGLOBIN 9.1 g/dl (12.0-16.0); LYMPHOCYTES # 0.7 10^3/ul (0.8-2.9); MEAN CORPUSCULAR HEMOGLOBIN 30.4 pg (29.0-33.0); MEAN CORPUSCULAR HGB CONC 31.6 g/dl (32.0-37.0); MEAN CORPUSCULAR VOLUME 96.3 fl (82.0-101.0); MEAN PLATELET VOLUME 10.8 fl (7.4-10.4); MONOCYTE # 1.4 10^3/ul (0.3-0.9); NEUTROPHILS % 84.1 % (39.0-77.0); NUCLEATED RED BLOOD CELLS% 0.1 /100WBC (0.0-0.0); PLATELET COUNT 238 10^3/UL (140-415); RED BLOOD COUNT 2.99 10^6/ul (4.20-5.40); RED CELL DISTRIBUTION WIDTH 14.7 % (11.5-14.5)
[2018-07-10 05:49] LABS: WHITE BLOOD COUNT 14.3 10^3/ul (4.8-10.8)
[2018-07-10 06:14] LABS: INR 1.05; PARTIAL THROMBOPLASTIN TIME 26.1 Sec (23.0-35.0); PROTIME 13.8 Sec (11.9-14.9); PT RATIO 1.1
[2018-07-10 06:21] LABS: MAGNESIUM 2.3 mg/dl (1.7-2.5)
[2018-07-10 06:26] LABS: ALANINE AMINOTRANSFERASE 30 IU/L (13-69); ALBUMIN/GLOBULIN RATIO 0.93; ALKALINE PHOSPHATASE 71 IU/L (42-121); ANION GAP 17 (8-16); ASPARTATE AMINO TRANSFERASE 31 IU/L (15-46); BILIRUBIN,INDIRECT 0.2 mg/dl (0-1.1); BILIRUBIN,TOTAL 0.2 mg/dl (0.2-1.3); BLOOD UREA NITROGEN 114 mg/dl (7-20); CALCIUM 7.4 mg/dl (8.4-10.2); CARBON DIOXIDE 29 mmol/L (21-31); CHLORIDE 100 mmol/L (97-110); CREATININE 3.74 mg/dl (0.44-1.00); POTASSIUM 4.5 mmol/L (3.5-5.1); SODIUM 141 mmol/L (135-144); TOTAL PROTEIN 6.2 g/dl (6.1-8.1)
[2018-07-10 06:34] LABS: GLUCOSE 31 mg/dl (70-220)
[2018-07-10] MEDS: DEXTROSE 50% 50 ML SYRINGE IV (06:40)
[2018-07-10 07:14] LABS: URIC ACID 10.6 mg/dl (3.1-7.9)
[2018-07-10] MEDS: INSULIN ASPART [NOVOLOG] 3 ML PEN SC ×6 (08:00→17:43)
[2018-07-10] MEDS: CALCIUM ACETATE 667 MG CAP PO ×3 (08:28→17:39)
[2018-07-10] MEDS: VORICONAZOLE 200 MG TAB PO (08:29)
[2018-07-10] MEDS: NIFEdipine (XL) 90 MG TAB PO (08:29)
[2018-07-10] MEDS: DOCUSATE SODIUM 100 MG CAP PO (08:30)
[2018-07-10] MEDS: LACTOBACILLUS RHAMNOSUS CAP PO (08:30)
[2018-07-10] MEDS: METHYLPREDNISOLONE 40 MG INJ IV (08:30)
[2018-07-10] MEDS: ASPIRIN 81 MG TAB PO (08:31)
[2018-07-10] MEDS: THIAMINE 100 MG TAB PO (08:31)
[2018-07-10] MEDS: ENOXAPARIN 30 MG/0.3 ML SYG SC (09:32)
[2018-07-10] MEDS: ACETAMINOPHEN 325 MG TAB PO (09:54)
[2018-07-10 11:16] LABS: PROCALCITONIN <0.10 ng/mL (<0.10)
[2018-07-10] MEDS: SOD CHLORIDE 0.45% 500 ML IV (11:49)
[2018-07-10] MEDS ORDERED: INSULIN GLARGINE [LANTus] (100 UNITS/ML) SYG SC (21:00)
== END 2018-07-10 19:42 | disposition hospice, home (50) | DRG 291 ==
LOC: E/R 06:38 → 6WM 08:23
PROC: 5A09357 Assistance with Respiratory Ventilation, Less than 24 Consecutive Hours, Continuous Positive Airway Pressure (ICD-10-PCS; 2018-07-05)
PROC: 0W993ZX Drainage of Right Pleural Cavity, Percutaneous Approach, Diagnostic (ICD-10-PCS; principal; 2018-07-09)
DX: I13.0 Hypertensive heart and chronic kidney disease with heart failure and stage 1 through stage 4 chronic kidney disease, or unspecified chronic kidney disease (principal); J18.9 Pneumonia, unspecified organism; J96.22 Acute and chronic respiratory failure with hypercapnia; I50.33 Acute on chronic diastolic (congestive) heart failure; J96.21 Acute and chronic respiratory failure with hypoxia; N17.9 Acute kidney failure, unspecified; G93.40 Encephalopathy, unspecified; B37.49 Other urogenital candidiasis; J90 Pleural effusion, not elsewhere classified; E11.22 Type 2 diabetes mellitus with diabetic chronic kidney disease; E11.65 Type 2 diabetes mellitus with hyperglycemia; N18.3 Chronic kidney disease, stage 3 (moderate); J84.10 Pulmonary fibrosis, unspecified; E87.5 Hyperkalemia; E78.5 Hyperlipidemia, unspecified; D63.1 Anemia in chronic kidney disease; E03.9 Hypothyroidism, unspecified; R62.7 Adult failure to thrive; I34.0 Nonrheumatic mitral (valve) insufficiency; I27.20 Pulmonary hypertension, unspecified; J43.9 Emphysema, unspecified; G31.84 Mild cognitive impairment of uncertain or unknown etiology; D53.1 Other megaloblastic anemias, not elsewhere classified; F03.90 Unspecified dementia, unspecified severity, without behavioral disturbance, psychotic disturbance, mood disturbance, and anxiety; Z91.14 Patient's other noncompliance with medication regimen
CPT/HCPCS: 36415; 36430; 36600; 71045; 71250; 76775; 76942; 80048; 80053; 81001; 81003; 82550; 82553; 82570; 82607; 82803; 82945; 82962; 83036; 83540; 83605; 83615; 83690; 83735; 83986; 84100; 84145; 84157; 84300; 84443; 84484; 84560; 85025; 85610; 85730; 86850; 86900; 86901; 86920; 87040; 87070; 87081; 87086; 87102; 87116; 89051; 89190; 93005; 93306; 94640; 94644; 94660; 94664; 96374; 99291-25